=== PATIENT | female | born 1945 | race Caucasian/White ===

== ENCOUNTER 2018-07-29 23:56 | Emergency (ER) | payer OTHER, BC ==
[2018-07-30 00:51] VITALS: BP 141/75; PULSE 80; TEMP 98.2; BMI 25.7
--- NOTE | 2018-07-30 01:43 | PDOC ---
History of Present Illness - General Chief Complaint: Injury Stated Complaint: FALL Time Seen by Provider: 07/30/18 00:54 History Source: Patient Exam Limitations: No Limitations - History of Present Illness Initial Comments: 07/30/18 01:41 Patient is a 72-year-old female with history of brain aneurysm, hysterectomy, oopharectomy, bowel resection, bladder lift complaining off head injury evening. States she was carrying a suitcase and bag when she stepped on uneven pavement slipped and fell on her hands and knees then striking her right head to the ground. There was no loss of contact consciousness, no nausea, vomiting, confusion, but was dizzy and had to lay on the ground before she could get up. Patient is concerned about her aneurysm that and needs to get that evaluated. PMD: Dr. Ruiz PMHX: as above PSOCHX: neg etoh, drug, cig AALL: NKDA GENERAL/CONSTITUTIONAL: [No fever or chills. No weakness. No weight change.] HEAD, EYES, EARS, NOSE AND THROAT: [No change in vision. No ear pain or discharge. No sore throat.] CARDIOVASCULAR: [No chest pain or shortness of breath.] RESPIRATORY: [No cough, wheezing, or hemoptysis.] GASTROINTESTINAL: [No nausea, vomiting, diarrhea or constipation. No rectal bleeding.] GENITOURINARY: [No dysuria, frequency, or change in urination.] MUSCULOSKELETAL: [No joint or muscle swelling or pain. No neck or back pain.] SKIN AND BREASTS: [No rash or easy bruising.] NEUROLOGIC: [No headache, vertigo, loss of consciousness, or loss of sensation.] PSYCHIATRIC: [No depression or anxiety.] ENDOCRINE: [No increased thirst. No abnormal weight change.] HEMATOLOGIC/LYMPHATIC: [No anemia, easy bleeding, or history of blood clots.] ALLERGIC/IMMUNOLOGIC: [No hives or skin allergy. No latex allergy.] GENERAL: [The patient is awake, alert, and fully oriented, in no acute distress. ] HEAD: [Normal with no signs of trauma, mild tenderness to the right parietal] EYES: [Pupils equal, round and reactive to light, extraocular movements intact, sclera anicteric, conjunctiva clear.] ENT: [Ears normal, nares patent, oropharynx clear without exudates. Moist mucous membranes.] NECK: [Normal range of motion, supple without lymphadenopathy, JVD, or masses.] LUNGS: [Breath sounds equal, clear to auscultation bilaterally. No wheezes, and no crackles.] HEART: [Regular rate and rhythm, normal S1 and S2 without murmur, rub.] ABDOMEN: [Soft, nontender, normoactive bowel sounds. No guarding, no rebound. No masses.] EXTREMITIES: [Normal range of motion of all extremities no edema. No clubbing or cyanosis. No cords, erythema, mild tenderness left knee and right elbow] NEUROLOGICAL: [Cranial nerves II through XII grossly intact. Normal speech, normal gait.] PSYCH: [Normal mood, normal affect.] Past History - Suicide/Smoking/Psychosocial Hx Smoking History: Never smoked Have you smoked in the past 12 months: No Information on smoking cessation initiated: No Hx Alcohol Use: No Drug/Substance Use Hx: No *Physical Exam - Vital Signs Last Vital Signs Temp Pulse Resp BP Pulse Ox 98.2 F 80 20 141/75 98 07/30/18 00:00 07/30/18 00:00 07/30/18 00:00 07/30/18 00:00 07/30/18 00:00 Medical Decision Making - Medical Decision Making Patient is a 72-year-old female with history of brain aneurysm, hysterectomy, oopharectomy, bowel resection, bladder lift complaining off head injury evening. States she was carrying a suitcase and bag when she stepped on uneven pavement slipped and fell on her hands and knees then striking her right head to the ground. Concerns for an aneurysmal bleed. CT head noncontrast. If negative patient can be discharged. She is neurologically intact. 07/30/18 02:06 Patient Full Name: DEVON LIMON Patient Accession No: [id number] Patient : [id number] Reason for Exam: HEAD TRAUMA Referring Physician: MARITO DAVEY Patient Name: BRAXTON OSORIO THIS IS A PRELIMINARY REPORT FROM [facility] DATE OF SERVICE: 2018-07-30 01:13:05 IMAGES: [id number] EXAM: CT HEAD WITHOUT CONTRAST No acute brain parenchymal abnormality. No hemorrhage, mass or acute territorial infarct. Age-related involutional changes. No skull fracture. Clear visualized paranasal sinuses. Visualized mastoid air cells clear. Individualized dose optimization techniques were used for this CT. THIS DOCUMENT HAS BEEN ELECTRONICALLY SIGNED Allie Veronica M.D. 07/30/2018 01:26 PASTORA Kimball. Please call [facility] [phone] with questions. INTERPRETING RADIOLOGIST: Allie Veronica MD Electronically Signed: Jul 30, 2018 01:27AM EDT I discussed the physical exam findings, ancillary test results and final diagnoses with the patient. I answered all of the patient's questions. The patient was satisfied with the care received and felt comfortable with the discharge plan and treatment plan. The Patient agrees to follow up with the primary care physician within 24-72 hours. *DC/Admit/Observation/Transfer Diagnosis at time of Disposition: Closed head injury Qualifiers: Encounter type: initial encounter Qualified Code(s): S09.90XA - Unspecified injury of head, initial encounter Contusion Qualifiers: Encounter type: initial encounter Contusion area: knee - Discharge Dispostion Disposition: HOME Condition at time of disposition: Stable - Referrals - Patient Instructions Printed Discharge Instructions: DI for Closed Head Injury, DI for Contusion Additional Instructions: Your Discharge Instructions: You must call primary care physician within 24 hours to arrange follow-up. Return to the Emergency Department with any new, persistent or worsening symptoms, for fever, chills, SOB, dizziness, nausea, vomiting, headache or any other concerning changes that may occur. - Post Discharge Activity
== END 2018-07-30 02:30 | disposition home or self-care (01) ==
LOC: JER 23:56
DX: S09.8XXA Other specified injuries of head, initial encounter (principal); S80.02XA Contusion of left knee, initial encounter; S80.01XA Contusion of right knee, initial encounter; W18.39XA Other fall on same level, initial encounter; Y93.01 Activity, walking, marching and hiking; Y92.480 Sidewalk as the place of occurrence of the external cause; Y99.8 Other external cause status; Z86.79 Personal history of other diseases of the circulatory system
CPT/HCPCS: 70450-TC; 99281-25